=== PATIENT | female | born 1985 | race Caucasian/White ===

== ENCOUNTER 2016-09-26 05:24 | Observation (INO) | payer OTHER ==
[~2016-09-26] VITALS: Ht 152.4 cm; Wt 29.0 kg
[~2016-09-26 05:24] MED LIST: ALBUTEROL0.63 MG/3 INH; AMOXIL SUS250 MG/5 M GT; ATIVAN 1MG TABLE1 MG PO; BACTROBAN15 GM TP; BACTROBAN22 GM TOP; CLARITIN 5M5 MG/5 ML GT; DIASTAT 2.5 MG2.5 MG PR; FLONASE 0.05% N16 GM; KLONOPIN TAB 00.5 MG GT; KLONOPIN TAB 00.5 MG PO; METOCLOPRAMIDE GT; MIRALAX17 GM PO; MOTRIN SUS100 MG/5 M GT; MY FAVORITE MU237 ML GT; MYLICON DR40 MG/0.6 GT; PHENOBARBI20 MG/5 ML GT; PHENOBARBITAL GT; PREVACID 30 MG30 MG GT; PREVACID30 MG GT; QVAR8.7 G1 INH; RANITIDINE15 MG/1 ML PO; SINGULAIR5 MG PO; SYNTHROID25 MCG PO; TEGRETOL100 MG/5 M PO; VALIUM 5 MG TAB5 MG PR; ZANAFLEX 4 MG TA4 MG GT; ZANAFLEX4 MG GT; ZOFRAN4 MG/5 ML GT; [UNRECOGNIZED DRUG - OTHER] GT; [UNRECOGNIZED DRUG - OTHER] GT
[2016-09-26 08:18] LABS: HEMOGLOBIN 12.3 gm/dl (12.3-15.3); RED BLOOD COUNT 4.1 M/UL (4.00-5.10); WHITE BLOOD COUNT 5.7 K/UL (4.5-11.0)
[2016-09-26 08:41] LABS: BUN/CREATININE RATIO 47 (0-10)
[2016-09-26 14:30] LABS: HEMOGLOBIN 12.1 gm/dl (12.3-15.3)
[2016-09-26 19:06] LABS: HEMOGLOBIN 10.6 gm/dl (12.3-15.3)
[2016-09-27 01:00] LABS: HEMOGLOBIN 9.9 gm/dl (12.3-15.3)
[2016-09-27 05:05] LABS: HEMOGLOBIN 10.9 gm/dl (12.3-15.3)
[2016-09-27 05:06] LABS: RED BLOOD COUNT 3.66 M/UL (4.00-5.10); WHITE BLOOD COUNT 4.2 K/UL (4.5-11.0)
[2016-09-27 05:22] LABS: BUN/CREATININE RATIO 30 (0-10)
== END 2016-09-27 19:12 | disposition home or self-care (01) ==
LOC: ER1 05:24 → M/S 10:55 → ZEROF 10:55 → M/S 13:31
PROVIDERS: Internal Medicine Gastroenterology; Physician Assistant; ADMIT Internal Medicine
PROC: 0DJ08ZZ Inspection of Upper Intestinal Tract, Via Natural or Artificial Opening Endoscopic (ICD-10-PCS; principal; 2016-09-27 12:15)
DX: K25.9 Gastric ulcer, unspecified as acute or chronic, without hemorrhage or perforation (principal); K44.9 Diaphragmatic hernia without obstruction or gangrene; K21.0 Gastro-esophageal reflux disease with esophagitis; D62 Acute posthemorrhagic anemia; G80.9 Cerebral palsy, unspecified; G40.909 Epilepsy, unspecified, not intractable, without status epilepticus; F41.9 Anxiety disorder, unspecified; E03.9 Hypothyroidism, unspecified; J96.90 Respiratory failure, unspecified, unspecified whether with hypoxia or hypercapnia; Z87.01 Personal history of pneumonia (recurrent); Z79.899 Other long term (current) drug therapy; Z88.1 Allergy status to other antibiotic agents
CPT/HCPCS: 36415; 74000; 80048; 80053; 81001; 83735; 85014; 85018; 85025; 86850; 86900; 86901; 87086; 96374; 99285; C9113; G0378; J2250; J7040

== ENCOUNTER → 2020-07-23 | Outpatient (CLI) | payer OTHER ==
[~2020-07-23] MED LIST changes: -ALBUTEROL0.63 MG/3 INH; +ATIVAN 1MG TABLE1 MG GT; -ATIVAN 1MG TABLE1 MG PO; +AUGMENTIN125 MG/5 M GT; +AUGMENTIN400 MG/5 M GT; +AUGMENTIN600 MG/5 M PO; +IPRAT-ALBUT 0.5-3 ML INH; -KLONOPIN TAB 00.5 MG PO; +MIRALAX17 GM GT; -MIRALAX17 GM PO; +OSMOLITE 1.51000 ML NG; -PREVACID30 MG GT; +RANITIDINE15 MG/1 ML GT; +SINGULAIR10 MG GT; +SYNTHROID25 MCG GT; -SYNTHROID25 MCG PO; +TEGRETOL100 MG/5 M GT; -TEGRETOL100 MG/5 M PO
== END ==
LOC: KOH-I 14:30
DX: J20.9 Acute bronchitis, unspecified (principal); R91.8 Other nonspecific abnormal finding of lung field
CPT/HCPCS: 71046

== ENCOUNTER → 2021-11-24 | Outpatient (CLI) | payer OTHER | LOC: LBRF 14:32 | DX: N39.0 Urinary tract infection, site not specified (principal) | CPT/HCPCS: 81001; 87077; 87086; 87186 ==

== ENCOUNTER 2021-12-02 12:03 | Inpatient (IN) | payer OTHER ==
[~2021-12-02] VITALS: Ht 152.4 cm; Wt 27.2 kg
[~2021-12-02 12:03] MED LIST changes: -PHENOBARBI20 MG/5 ML GT; +PHENOBARBITAL PO
[2021-12-02 13:17] LABS: RED BLOOD COUNT 3.23 M/UL (4.00-5.10); WHITE BLOOD COUNT 6.2 K/UL (4.5-11.0)
[2021-12-02 13:37] LABS: BUN/CREATININE RATIO 55 (0-10)
[2021-12-02] MEDS ORDERED: GABAPENTIN250 MG/5 M PO (15:53)
[2021-12-03 03:39] LABS: HEMOGLOBIN 8.2 gm/dl (12.3-15.3); WHITE BLOOD COUNT 5.4 K/UL (4.5-11.0)
[2021-12-03 03:58] LABS: RED BLOOD COUNT 2.6 M/UL (4.00-5.10)
[2021-12-03 04:18] LABS: BUN/CREATININE RATIO 48 (0-10)
[2021-12-03 13:59] LABS: CANDIDA ALBICANS Not Detected (Negative); CANDIDA KRUSEI Not Detected (Negative); CANDIDA TROPICALIS Not Detected (Negative); ESCHERICHIA COLI Not Detected (Negative); HAEMOPHILUS INFLUENZAE Not Detected (Negative); KLEBSIELLA OXYTOCA Not Detected (Negative); KLEBSIELLA PNEUMONIAE Not Detected (Negative); KPC-CARBAPENEM-RESISTANCE GENE Not Detected (Negative); PROTEUS Not Detected (Negative); PSEUDOMONAS AERUGINOSA Not Detected (Negative); SERRATIA MARCESANS Not Detected (Negative); STAPHYLOCOCCUS AUREUS Not Detected (Negative); STREP AGALACTIAE (GROUP B) Not Detected (Negative); STREP PYOGENES (GROUP A) Not Detected (Negative); STREPTOCOCCUS Not Detected (Negative); vanA/B (VANCOMYCIN RESIST GENE Not Detected (Negative)
[2021-12-03 16:46] LABS: STAPHYLOCOCCUS DETECTED (Negative)
[2021-12-04 03:14] LABS: HEMOGLOBIN 8.3 gm/dl (12.3-15.3); RED BLOOD COUNT 2.67 M/UL (4.00-5.10); WHITE BLOOD COUNT 4.6 K/UL (4.5-11.0)
[2021-12-04 03:44] LABS: BUN/CREATININE RATIO 28 (0-10)
[2021-12-05 03:53] LABS: HEMOGLOBIN 8.4 gm/dl (12.3-15.3); RED BLOOD COUNT 2.73 M/UL (4.00-5.10)
[2021-12-05 04:33] LABS: BUN/CREATININE RATIO 27 (0-10)
[2021-12-05] MEDS ORDERED: HYDROCORTISONE 1% TOP (09:18)
[2021-12-05] MEDS ORDERED: CEFDINIR250 MG/5 M GT (09:18)
--- NOTE | 2021-12-05 12:13 | NUR ---
CASE MGMT SHELDON [employer]EL NOTIFIED THAT PT. IS BEING DISCHARGED AND WILL RESUME [facility]. SHELDON STATES SHE WILL TAKE CARE OF THE PAPERWORK NEEDED FOR THIS AND I DIDN'T NEED TO CALL PROFESSIONAL ON THIS.
--- NOTE | 2021-12-05 14:51 | NUR ---
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 NO ANSWER, I LEFT VOICEMAIL TO CALL ME AT HOSPITAL
== END 2021-12-05 00:35 | disposition home or self-care (01) | DRG 689 ==
LOC: ER1 12:03 → M/S 15:27 → CDU 15:27 → M/S 17:25
PROVIDERS: Internal Medicine; Nurse Practitioner; Physician Assistant; ADMIT Internal Medicine
DX: N30.00 Acute cystitis without hematuria (principal); G93.41 Metabolic encephalopathy; E87.1 Hypo-osmolality and hyponatremia; Z16.12 Extended spectrum beta lactamase (ESBL) resistance; B96.4 Proteus (mirabilis) (morganii) as the cause of diseases classified elsewhere; G80.9 Cerebral palsy, unspecified; G40.909 Epilepsy, unspecified, not intractable, without status epilepticus; D64.9 Anemia, unspecified; D75.839 Thrombocytosis, unspecified; E03.9 Hypothyroidism, unspecified; Z87.440 Personal history of urinary (tract) infections; B95.7 Other staphylococcus as the cause of diseases classified elsewhere; Z93.1 Gastrostomy status; Z88.1 Allergy status to other antibiotic agents; Z82.49 Family history of ischemic heart disease and other diseases of the circulatory system; Z98.890 Other specified postprocedural states
CPT/HCPCS: 36415; 71045; 80048; 80053; 81001; 82962; 83605; 83735; 85025; 85027; 87040; 87077; 87086; 87150; 87186; 94640; 94664; 94760; 96374; 96375; 99285; A6212; G0378; J0696; J2405; J2543

== ENCOUNTER 2022-02-10 16:39 | Inpatient (IN) | payer OTHER ==
[~2022-02-10] VITALS: Ht 152.4 cm; Wt 27.2 kg
[~2022-02-10 16:39] MED LIST changes: +CEFDINIR250 MG/5 M GT; +GABAPENTIN250 MG/5 M PO; +HYDROCORTISONE 1% TOP
[2022-02-10 17:33] LABS: HEMOGLOBIN 12.2 gm/dl (12.3-15.3); RED BLOOD COUNT 3.93 M/UL (4.00-5.10); WHITE BLOOD COUNT 7.5 K/UL (4.5-11.0)
[2022-02-10 17:53] LABS: BUN/CREATININE RATIO 31 (0-10)
[2022-02-11 04:23] LABS: HEMOGLOBIN 11.4 gm/dl (12.3-15.3); RED BLOOD COUNT 3.76 M/UL (4.00-5.10); WHITE BLOOD COUNT 6.6 K/UL (4.5-11.0)
[2022-02-11] MEDS ORDERED: CEFDINIR300 MG PO (10:39)
[2022-02-11] MEDS ORDERED: PROBIOTIC1 EAC1 PO (11:01)
[2022-02-11] MEDS ORDERED: MY FAVORITE MU237 ML PO (11:04)
[2022-02-11] MEDS ORDERED: MIRALAX17 GM PO (11:04)
[2022-02-11] MEDS ORDERED: IPRAT-ALBUT 0.5-3 ML NEB (11:05)
[2022-02-11] MEDS ORDERED: FLONASE 0.05% N16 GM (11:05)
[2022-02-11] MEDS ORDERED: CHILDREN'S5 MG/5 M1 PO (11:06)
[2022-02-11 11:09] LABS: BUN/CREATININE RATIO 34 (0-10)
[2022-02-12 02:52] LABS: WHITE BLOOD COUNT 5.1 K/UL (4.5-11.0)
[2022-02-12 03:00] LABS: HEMOGLOBIN 9.3 gm/dl (12.3-15.3); RED BLOOD COUNT 3.01 M/UL (4.00-5.10)
[2022-02-12 03:08] LABS: BUN/CREATININE RATIO 32 (0-10)
[2022-02-13 05:50] LABS: HEMOGLOBIN 9.4 gm/dl (12.3-15.3); WHITE BLOOD COUNT 5.2 K/UL (4.5-11.0)
[2022-02-13 06:10] LABS: BUN/CREATININE RATIO 31 (0-10)
[2022-02-13] MEDS ORDERED: LIPITOR40 MG PO (09:11)
[2022-02-14 04:46] LABS: HEMOGLOBIN 11.1 gm/dl (12.3-15.3)
[2022-02-14 04:47] LABS: RED BLOOD COUNT 3.63 M/UL (4.00-5.10)
[2022-02-14 05:12] LABS: BUN/CREATININE RATIO 43 (0-10)
[2022-02-14] MEDS ORDERED: INVANZ 1 GM VIAL1 GM IM (09:13)
--- NOTE | 2022-02-14 13:38 | NUR ---
patient given the first dose of invanz and patient rosemary well. report given to [facility] admitting nurse domingo.
== END 2022-02-14 15:34 | disposition home health service (06) | DRG 177 ==
LOC: ER1 16:39 → CDU 20:47 → M/S 20:47 → CDU 23:05 → M/S 23:06
PROVIDERS: Internal Medicine; Physician Assistant; ADMIT Family Medicine
DX: J69.0 Pneumonitis due to inhalation of food and vomit (principal); G80.0 Spastic quadriplegic cerebral palsy; Z16.12 Extended spectrum beta lactamase (ESBL) resistance; N30.00 Acute cystitis without hematuria; N13.6 Pyonephrosis; E87.1 Hypo-osmolality and hyponatremia; Z20.822 Contact with and (suspected) exposure to COVID-19; K29.70 Gastritis, unspecified, without bleeding; E87.6 Hypokalemia; K59.00 Constipation, unspecified; F41.9 Anxiety disorder, unspecified; E03.9 Hypothyroidism, unspecified; G40.909 Epilepsy, unspecified, not intractable, without status epilepticus; Z87.440 Personal history of urinary (tract) infections; Z93.1 Gastrostomy status; Z79.899 Other long term (current) drug therapy; Z82.49 Family history of ischemic heart disease and other diseases of the circulatory system; Z80.8 Family history of malignant neoplasm of other organs or systems; Z98.890 Other specified postprocedural states; Z87.01 Personal history of pneumonia (recurrent)
CPT/HCPCS: 36415; 71045; 74018; 80048; 80053; 80156; 80184; 81001; 83605; 83690; 83735; 83880; 84100; 84443; 85025; 85027; 87040; 87077; 87086; 87186; 93005; 94640; 94664; 94760; 96374; 99285; A6212; J1335; J1650; J2185; J2543; Q9967; U0002